=== PATIENT | male | born 1980 | race Caucasian/White ===

== ENCOUNTER 2024-06-12 12:25 | Emergency (ER) | payer SELFPAY | END 2024-06-12 14:02 | disposition home or self-care (01) | LOC: JD.ED 12:25 | DX: H66.002 Acute suppurative otitis media without spontaneous rupture of ear drum, left ear (principal); Z79.2 Long term (current) use of antibiotics | CPT/HCPCS: 71046; 71046-26; 87428-QW; 87651-QW; 99282; 99283 ==